=== PATIENT | female | born 1930 | race Caucasian/White ===

== ENCOUNTER 2016-09-08 23:10 | Emergency (ER) | payer MEDICARE, MEDICAID ==
--- NOTE | 2016-09-08 23:22 | Emergency Department Record ---
History of Present Illness - General Chief Complaint: Fall Injury Stated Complaint: FALL Time Seen by Provider: 09/08/16 23:16 Source: Patient, EMS Mode of Arrival: Stretcher Limitations: No limitations - History of Present Illness Initial Comments: 85 yo female presents to ED following a fall at [facility]. Patient reports that she fell striking her right forehead and right lateral hip, denies LOC or difficulty moving her right hips. Patient denies neck injury or pain on examination. 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 Fall Witnessed: Yes, by living facility staff Place Fall Occurred: Home Loss of Consciousness: None Prolonged Down Time?: No Symptoms Prior to Fall: None Location: Head Severity: Moderate Quality: Aching Associated Symptoms: Denies - Sundar Coma Scale Eye Response: (4) Open spontaneously Motor Response: (6) Obeys commands Verbal Response: (5) Oriented Sundar Total: 15 - Related Data Home Medications Medication Instructions Recorded Confirmed Last Taken Acetaminophen [Tylenol 325Mg] 650 mg PO Q6H 09/02/16 09/08/16 Unknown Albuterol Sulfate 0.083% [Neb] 2 inh PO ASDIR 09/02/16 09/08/16 Unknown Amlodipine Besylate [Norvasc] 10 mg PO DAILY 09/02/16 09/08/16 09/02/16 Ammonium Lactate [Kylah-Hydrolac] 2 apply TOP ASDIR 09/02/16 09/08/16 09/01/16 Aspirin [Adult Low Dose Aspirin EC] 81 mg PO DAILY 09/02/16 09/08/16 09/02/16 Atenolol [Tenormin] 25 mg PO DAILY 09/02/16 09/08/16 09/02/16 Atorvastatin Calcium [Lipitor] 40 mg PO QHS 09/02/16 09/08/16 09/01/16 Cholecalciferol (Vitamin D3) 1 tab PO DAILY 09/02/16 09/08/16 09/02/16 [Vitamin D3] Multivits,Ca,Minerals/Iron/FA 1 tab PO DAILY 09/02/16 09/08/16 09/02/16 [Thera M Plus Tablet] Omeprazole [Prilosec] 20 mg PO DAILY 09/02/16 09/08/16 09/02/16 Ondansetron [Zofran Odt] 4 mg PO Q6HR PRN 09/02/16 09/08/16 Unknown Oxybutynin Chloride [Ditropan Xl] 10 mg PO DAILY 09/02/16 09/08/16 09/02/16 Sennosides [Senna] 8.6 mg PO QAM 09/02/16 09/08/16 09/02/16 Tazarotene [Tazorac] 30 gm TP ASDIR 09/02/16 09/08/16 09/02/16 Hydralazine HCl [Apresoline] 25 mg PO TID 09/08/16 09/08/16 Unknown Hydrocodone/Acetaminophen [[place] 1 tab PO BID 09/08/16 09/08/16 Unknown 5mg/325mg] Lidocaine [Lidoderm] 1 each TP DAILY 09/08/16 09/08/16 Unknown Loratadine [Claritin] 10 mg PO DAILY 09/08/16 09/08/16 Unknown Nabumetone 750 mg PO DAILY 09/08/16 09/08/16 Unknown Allergies Allergy/AdvReac Type Severity Reaction Status Date / Time Penicillins Allergy SWELLING Verified 09/02/16 13:11 (GENERAL) Review of Systems Constitutional: Denies: Chills, Fever, Malaise, Night sweats Eyes: Denies: Eye discharge, Eye pain ENT: Denies: Congestion, Ear pain, Epistaxis Respiratory: Denies: Cough, Dyspnea Cardiovascular: Denies: Chest pain, Dyspnea on exertion Endocrine: Denies: Fatigue, Heat or cold intolerance Gastrointestinal: Denies: Abdominal pain, Nausea, Vomiting Musculoskeletal: Reports: Arthralgia (right hip apin). Denies: Back pain, Gout , Joint swelling Skin: Denies: Bruising, Change in color Neurological: Reports: Headache. Denies: Abnormal gait, Confusion, Seizure Psychiatric: Denies: Anxiety Hematological/Lymphatic: Denies: Anemia, Blood Clots Past Medical History - SOCIAL HISTORY Smoking Status: Former smoker Drug Use: None - RESPIRATORY Hx Respiratory Disorders: No - CARDIOVASCULAR Hx Cardio Disorders: Yes Hx Hypertension: Yes - NEURO Hx Neuro Disorders: Yes Hx CVA: Yes - GI Hx GI Disorders: Yes Comment:: constipation - Hx Genitourinary Disorders: No - ENDOCRINE Hx Endocrine Disorders: No - MUSCULOSKELETAL Hx Musculoskeletal Disorders: Yes Hx Arthritis: Yes - PSYCH Hx Psych Problems: No - HEMATOLOGY/ONCOLOGY Hx Hematology/Oncology Disorders: No Family Medical History Family Hx Comment (NOT TO BE USED IN PLACE OF ITEMS BELOW): brother had MS Hx Cancer: Brother/Sister Hx Heart Disease: Brother/Sister Physical Exam - General General Appearance: Alert, Oriented x3, Cooperative, No acute distress Limitations: No limitations - Head Head exam: Normocephalic, Other (abrasion to the right forehead) Head exam detail: Abrasion. negative: Contusion, Granado's sign, Hematoma, Laceration - Eye Eye exam: Normal appearance. negative: Conjunctival injection, Periorbital swelling, Periorbital tenderness, Scleral icterus - ENT Ear exam: negative: Auricular hematoma, Auricular trauma Nasal Exam: negative: Active bleeding, Discharge, Dried blood, Foreign body Mouth exam: negative: Drooling, Laceration, Muffled voice, Tongue elevation - Neck Neck exam: Normal inspection. negative: Meningismus, Tenderness - Respiratory Respiratory exam: Normal lung sounds bilaterally. negative: Respiratory distress, Rhonchi, Stridor, Wheezes - Cardiovascular Cardiovascular Exam: Regular rate, Normal rhythm, Normal heart sounds - GI/Abdominal GI/Abdominal exam: Soft. negative: Rebound, Rigid, Tenderness - Rectal Rectal exam: Deferred - exam: Deferred - Extremities Extremities exam: Tenderness (TTP to the proximal/lateral right hip on examination). negative: Calf tenderness, Pedal edema - Back Back exam: Denies: CVA tenderness (R), CVA tenderness (L) - Neurological Neurological exam: Alert, Oriented X3. negative: Motor sensory deficit - Psychiatric Psychiatric exam: Normal affect, Normal mood - Skin Skin exam: Normal color. negative: Abrasion Type of lesion: negative: abrasion Course - Reevaluation(s) Reevaluation #1: 09/09/16 00:06 CT Head: No acute traumatic injury Right Hip: No acute fracture identified patient and family were updated on all results, and appears stable for discharge at this time. 09/09/16 00:26 Disposition Disposition: Discharge Clinical Impression: Head contusion Qualifiers: Encounter type: initial encounter Contusion of head detail: unspecified part of head Qualified Code(s): S00.93XA - Contusion of unspecified part of head, initial encounter Contusion of hip, right Qualifiers: Encounter type: initial encounter Qualified Code(s): S70.01XA - Contusion of right hip, initial encounter Disposition: Home, Self-Care Condition: (2) Stable Instructions: Fall Prevention for Older Adults (ED) Additional Instructions: Return to ED if your symptoms worsen or if you have any concerns. Follow-up with your family doctor in 3-5 days as directed. Forms: Patient Portal Access Time of Disposition: 23:51
--- NOTE | 2016-09-11 15:37 | RADIOLOGY REPORT ---
DATE: 09/08/2016 at 11:45 p.m. EXAM: RIGHT HIP WITH AP PELVIS. HISTORY: The patient fell at assisted living with a bruise to the right lateral hip area. TECHNIQUE: AP pelvis, AP lateral right hip were obtained. COMPARISON: None. ENCOUNTER: Initial. 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 No definite acute fracture or dislocation of the right hip evident. There is an asymmetric vertical linear sclerotic density along the right side of the pubic symphysis compared to the left. No definite vertical step off seen to indicate a fracture. This is probably just relate to some degenerative change. Old films would be useful to confirm. Some vascular calcification is noted in the pelvis and right thigh. IMPRESSION: 1. NO DEFINITE FRACTURE OR DISLOCATION OF THE RIGHT HIP. 2. VERTICAL LINEAR SCLEROTIC DENSITY RIGHT SIDE OF THE PUBIC SYMPHYSIS PROBABLY JUST RELATED TO SOME SPURRING. OLD FILMS WOULD BE USEFUL TO CONFIRM. JOB NUMBER: [id number] MTDD
--- NOTE | 2016-09-11 15:46 | CT SCAN REPORT ---
DATE: 09/08/2016 at 11:56 p.m. EXAM: EMERGENCY HEAD CT WITHOUT CONTRAST. HISTORY: The patient fell in assisted living and hit her head on the wall in the right frontal region. TECHNIQUE: Axial CT scan of the head performed without intravenous contrast. Preliminary report provided by [facility]. COMPARISON: None. ENCOUNTER: Initial. FINDINGS: No definite acute intracranial hemorrhage is identified. No focal mass effect or midline shift apparent. 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 No definite acute infarct or intracranial mass lesion is seen. Extensive metallic artifact emanating from the anteromedial aspect of the right orbit, and clinical correlation is suggested. Some soft tissue swelling in the scalp of the right frontal region superiorly. No definite underlying fracture identified. IMPRESSION: 1. NO DEFINITE ACUTE INTRACRANIAL HEMORRHAGE OR FOCAL MASS EFFECT EVIDENT. 2. GENERALIZED ATROPHY WITH CHRONIC-APPEARING DEEP WHITE MATTER CHANGES. 3. SOFT TISSUE SWELLING OF THE SCALP OF THE RIGHT FRONTAL REGION SUPERIORLY. 4. PROMINENT METALLIC ARTIFACT EMANATING FROM THE ANTEROMEDIAL ASPECT OF THE RIGHT ORBIT. CLINICAL CORRELATION IS SUGGESTED. JOB NUMBER: [id number] MTDD
== END 2016-09-09 00:42 | disposition home or self-care (01) ==
LOC: ER 23:10
DX: S00.93XA Contusion of unspecified part of head, initial encounter (principal); S70.01XA Contusion of right hip, initial encounter; W18.00XA Striking against unspecified object with subsequent fall, initial encounter; Y92.129 Unspecified place in nursing home as the place of occurrence of the external cause; I10 Essential (primary) hypertension; Z87.891 Personal history of nicotine dependence
CPT/HCPCS: 70450; 99283; 99284

== ENCOUNTER 2017-04-04 10:06 | Emergency (ER) | payer BC, MEDICAID ==
--- NOTE | 2017-04-04 10:16 | Emergency Department Record ---
History of Present Illness - General Chief Complaint: Shortness of breath Stated Complaint: DID Time Seen by Provider: 04/04/17 10:08 Source: Patient, Family Mode of Arrival: Ambulatory Limitations: No limitations - History of Present Illness Initial Comments: 86 yo female presents from [facility] with shortness of breath. She states the shortness of breath started this morning. She denies chest pain. No significant cough. No fever. No vomiting or diarrhea. She had some associated nausea but no vomiting. No back pain. No recent changes in her health. She has a prior history of stroke and was admitted to [facility] one year ago in March. She has some permanent deficits from the stroke that are unchanged. MD Complaint: Shortness of breath -: Hour(s) Severity: Moderate Consistency: Constant Improves With: Rest Worsens With: Exertion Associated Symptoms: Denies other symptoms Treatments Prior to Arrival: None - Related Data Home Medications Medication Instructions Recorded Confirmed Last Taken Acetaminophen [Tylenol 325Mg] 650 mg PO Q6H 09/02/16 04/04/17 Unknown Albuterol Sulfate 0.083% [Neb] 2 inh PO ASDIR 09/02/16 04/04/17 Unknown Ammonium Lactate [Kylah-Hydrolac] 2 apply TOP ASDIR 09/02/16 04/04/17 09/01/16 Aspirin [Adult Low Dose Aspirin EC] 81 mg PO DAILY 09/02/16 04/04/17 09/02/16 Atenolol [Tenormin] 25 mg PO DAILY 09/02/16 04/04/17 09/02/16 Atorvastatin Calcium [Lipitor] 40 mg PO QHS 09/02/16 04/04/17 09/01/16 Cholecalciferol (Vitamin D3) 1 tab PO DAILY 09/02/16 04/04/17 09/02/16 [Vitamin D3] Multivit,Calc,Mins/Iron/Folic 1 tab PO DAILY 09/02/16 04/04/17 09/02/16 [Thera M Plus Tablet] Omeprazole [Prilosec] 20 mg PO DAILY 09/02/16 04/04/17 09/02/16 Ondansetron [Zofran Odt] 4 mg PO Q6HR PRN 09/02/16 04/04/17 Unknown Oxybutynin Chloride [Ditropan Xl] 10 mg PO DAILY 1204/04/17 09/02/16 Sennosides [Senna] 8.6 mg PO QAM 09/02/16 04/04/17 09/02/16 Tazarotene [Tazorac] 30 gm TP ASDIR 09/02/16 04/04/17 09/02/16 Hydralazine HCl [Apresoline] 25 mg PO TID 09/08/16 04/04/17 Unknown Hydrocodone/Acetaminophen [[place] 1 tab PO BID 09/08/16 04/04/17 Unknown 5mg/325mg] Lidocaine [Lidoderm] 1 each TP DAILY 09/08/16 04/04/17 Unknown Loratadine [Claritin] 10 mg PO DAILY 09/08/16 04/04/17 Unknown Nabumetone 750 mg PO DAILY 09/08/16 04/04/17 Unknown Escitalopram Oxalate [Lexapro] 20 mg PO DAILY 04/04/17 04/04/17 Unknown Allergies Allergy/AdvReac Type Severity Reaction Status Date / Time Penicillins Allergy SWELLING Verified 09/02/16 13:11 (GENERAL) Review of Systems Constitutional: Reports: Malaise, Weakness. Denies: Chills, Fever Eyes: Denies: Eye discharge, Eye pain, Photophobia, Vision change ENT: Denies: Congestion, Throat pain Respiratory: Reports: Dyspnea. Denies: Cough, Hemoptysis, Stridor, Wheezes Cardiovascular: Reports: Dyspnea on exertion. Denies: Arrhythmia, Chest pain, Edema, Palpitations, Syncope Endocrine: Reports: Fatigue. Denies: Polydipsia, Polyuria Gastrointestinal: Reports: Nausea. Denies: Abdominal pain, Constipation, Diarrhea, Hematemesis, Hematochezia, Vomiting Genitourinary: Denies: Dysuria, Urgency Musculoskeletal: Reports: As per HPI, Arthralgia Skin: Denies: Bruising, Change in color, Rash Neurological: Denies: Headache, Numbness, Weakness Psychiatric: Denies: Anxiety Hematological/Lymphatic: Denies: Blood Clots, Easy bleeding, Easy bruising, Swollen glands Past Medical History - SOCIAL HISTORY Smoking Status: Former smoker Drug Use: None - RESPIRATORY Hx Respiratory Disorders: No - CARDIOVASCULAR Hx Cardio Disorders: Yes Hx Hypertension: Yes - NEURO Hx Neuro Disorders: Yes Hx CVA: Yes - GI Hx GI Disorders: Yes Comment:: constipation - Hx Genitourinary Disorders: No - ENDOCRINE Hx Endocrine Disorders: No - MUSCULOSKELETAL Hx Musculoskeletal Disorders: Yes Hx Arthritis: Yes - PSYCH Hx Psych Problems: No - HEMATOLOGY/ONCOLOGY Hx Hematology/Oncology Disorders: No Family Medical History Family Hx Comment (NOT TO BE USED IN PLACE OF ITEMS BELOW): brother had MS Hx Cancer: Brother/Sister Hx Heart Disease: Brother/Sister Physical Exam - General General Appearance: Alert, Oriented x3, Cooperative, No acute distress Limitations: No limitations - Head Head exam: Normal inspection - Eye Eye exam: Normal appearance, PERRL - ENT ENT exam: Normal exam, Mucous membranes moist Ear exam: Normal external inspection Nasal Exam: Normal inspection Mouth exam: Normal external inspection Teeth exam: Normal inspection Throat exam: Normal inspection - Neck Neck exam: Normal inspection, Full ROM. negative: Tenderness - Respiratory Respiratory exam: Decreased breath sounds. negative: Accessory muscle use, Chest wall tenderness, Prolonged expiratory, Rales, Respiratory distress, Rhonchi, Stridor, Wheezes - Cardiovascular Cardiovascular Exam: Bradycardia, Irregular rhythm. negative: Normal rhythm, Tachycardia Peripheral Pulses: 2+: Radial (R), Radial (L) - GI/Abdominal GI/Abdominal exam: Soft. negative: Tenderness - Rectal Rectal exam: Deferred - exam: Deferred - Extremities Extremities exam: Normal inspection, Full ROM, Normal capillary refill, Tenderness (bilateral knee tenderness). negative: Pedal edema - Back Back exam: Reports: Normal inspection. Denies: CVA tenderness (R), CVA tenderness (L) - Neurological Neurological exam: Alert, Motor sensory deficit (chronic), Normal gait, Oriented X3. negative: Altered, CN II-XII intact - Psychiatric Psychiatric exam: Normal affect, Normal mood. negative: Agitated, Anxious - Skin Skin exam: Dry, Intact, Normal color, Warm Course - Reevaluation(s) Reevaluation #1: The patient was seen and examined No distress but bradycardia and irregular rhythm on exam No hypotension or AMS. Orders placed. 04/04/17 10:21 Trancutaneous pacers will be placed 04/04/17 10:29 Reevaluation #2: [id number] Unknown rhythm origin without P waves, rate approximately 50bpm, Intervals QRS 149, QTc 516, RBBB pattern, [place] normal, ST NS CW RBBB no old EKG for comparison 04/04/17 10:31 Patient is full code She prefers [facility] for transfer 04/04/17 10:42 Reevaluation #3: The labs were reviewed CR is 1.3 K is 5.1 Mg is 2.1 Troponin is normal at 0.012 BNP elevated 2170 CXR Mild CMG with mild PVC. [facility] contacted. 04/04/17 10:55 Reevaluation #4: The patient was accepted by Dr Estrada of [facility] 04/04/17 11:11 Medical Decision Making - Lab Data Result diagrams: 04/04/17 10:20 04/04/17 10:20 Disposition Disposition: Transfer Clinical Impression: Bradycardia Dyspnea Qualifiers: Dyspnea type: unspecified Qualified Code(s): R06.00 - Dyspnea, unspecified Arrhythmia Qualifiers: Arrhythmia type: unspecified cardiac arrhythmia Qualified Code(s): I49.9 - Cardiac arrhythmia, unspecified Disposition: Acute Care Hospital Transfer Transfer To: [facility] Reason For Transfer: Heart Block Accepting Physician: Sean Time Discussed w/Accepting Physician: 11:16 Condition: (3) Guarded Forms: Patient Portal Access Time of Disposition: 11:16 Quality - Quality Measures Quality Measures: N/A - Blood Pressure Screening View Details: Yes Blood Pressure Classification: Pre-Hypertensive BP Reading Systolic Measurement: 139 Diastolic Measurement: 54 Screening for High Blood Pressure: < Pre-Hypertensive BP, F/U Documented > [ G8950] Pre-Hypertensive Follow-up Interventions: Referral to alternative/primary care provider.
[2017-04-04 10:25] LABS: BASO % 0.8 % (0-6); EOS % 2.1 % (0-6); GRAN % 51.5 % (47-80); HEMATOCRIT 34.4 % (35.0-47.0); LYMPH % 37.5 % (16-45); MEAN CELL VOLUME 97.7 fl (81-97); MEAN CORPUSCULAR HEMOGLOBIN 31.2 pg (27-33); MEAN PLATELET VOLUME 10.6 fl (7.4-10.4); MONO % 8.1 % (0-9); PLATELET COUNT 227 K/uL (130-400); RED BLOOD COUNT 3.52 M/uL (3.80-5.40); RED CELL DISTRIBUTION WIDTH 14.5 % (11.5-14.5)
[2017-04-04 10:40] LABS: ALB/GLOB RATIO 1.5 (1.1-1.8); ALBUMIN 4.1 gm/dL (3.5-5.0); ALKALINE PHOSPHATASE 112 U/L (38-126); ALT/SGPT 129 U/L (9-52); ANION GAP 8.3 (7-16); AST/SGOT 139 U/L (14-36); BILIRUBIN,TOTAL 1.04 mg/dL (0.2-1.3); BLOOD UREA NITROGEN 28 mg/dL (7-17); CARBON DIOXIDE 23.7 mmol/L (22-30); CREATINE PHOSPHOKINASE 37 U/L (30-135); CREATININE 1.3 mg/dL (0.52-1.04); EST GLOMERULAR FILTRATION RATE 41 ml/min; GLUCOSE,RANDOM 148 mg/dL (70-110); INR 0.93; PARTIAL THROMBOPLASTIN TIME 25.2 SECONDS (24.5-39.1); TOTAL PROTEIN 6.8 gm/dL (6.3-8.2)
[2017-04-04 10:52] LABS: CKMB 1.1 ug/L (0-6); TROPONIN I < 0.012 ng/mL (0.00-0.034)
[2017-04-04] MEDS: FUROSEMIDE IV 20MG/2ML VIAL IVP ONE (11:14)
--- NOTE | 2017-04-06 11:12 | RADIOLOGY REPORT ---
EXAM: CHEST HISTORY: DIFFICULTY IN BREATHING. TECHNIQUE: A portable AP upright view of the chest was performed. FINDINGS: The heart size is normal. Mild pulmonary vascular congestion. No infiltrate or pleural effusion. The osseous structures are normal. IMPRESSION: MILD PULMONARY VASCULAR CONGESTION. JOB NUMBER: [id number] MTDD
== END 2017-04-04 12:00 | disposition short-term general hospital (02) ==
LOC: ER 10:06
DX: R00.1 Bradycardia, unspecified (principal); R06.00 Dyspnea, unspecified; R11.0 Nausea; I45.10 Unspecified right bundle-branch block; I10 Essential (primary) hypertension; Z87.891 Personal history of nicotine dependence
CPT/HCPCS: 71010; 80053; 82550; 82553; 83735; 83880; 84484; 85025; 85610; 85730; 93005; 93010; 96374; 99285; J1940

== ENCOUNTER 2017-07-24 11:55 | Emergency (ER) | payer BC, MEDICAID ==
[2017-07-24] MEDS ORDERED: ACETAMINOPHEN 1,000 MG/100 ML BTL IVPB ONE (11:56)
[2017-07-24] MEDS ORDERED: ONDANSETRON HCL IV 4 MG/2 ML VIAL IVP ONE (11:56)
--- NOTE | 2017-07-24 12:03 | Emergency Department Record ---
History of Present Illness - General Chief complaint: Head Injury Stated complaint: FALL Time Seen by Provider: 07/24/17 11:56 Source: Patient, EMS Mode of Arrival: Ambulatory Limitations: No limitations - History of Present Illness Initial comments: 86 yo female presents after a fall at a local nursing care facility. She was in the shower and fell reaching for a call light. She hit her right forehead. NO LOC. NO anti-coagulants. She is nauseated without vomiting. Staff by history got her out of the shower and dressed. She was up in a chair on EMS arrival. [facility] reports recent urinary urgency and frequency. MD Complaint: Head injury -: Minutes(s) Arrival Conditions: C-spine immobilization present Mechanism of Injury: Mechanical fall Location: Face, Frontal Loss of Consciousness: No Previous Trauma to this Area: No Place: Home Radiation: None Severity: Mild Quality: Aching Consistency: Constant Provoking factors: Other (Reaching for call light) Other Injuries: Other (forehead contusion) Associated Symptoms: Nausea - Related Data Allergies/Adverse reactions: Allergies Allergy/AdvReac Type Severity Reaction Status Date / Time Penicillins Allergy SWELLING Verified 09/02/16 13:11 (GENERAL) Review of Systems Constitutional: Denies: Chills, Fever, Malaise, Night sweats, Weakness Eyes: Denies: Eye discharge, Eye pain, Photophobia, Vision change ENT: Denies: Congestion, Throat pain Respiratory: Denies: Cough, Dyspnea, Wheezes Cardiovascular: Denies: Chest pain, Syncope Endocrine: Denies: Fatigue Gastrointestinal: Reports: Nausea. Denies: Abdominal pain, Diarrhea, Vomiting Genitourinary: Reports: Frequency, Urgency Musculoskeletal: Denies: Arthralgia, Back pain, Joint swelling, Myalgia, Neck pain Skin: Reports: As per HPI, Bruising Neurological: Reports: Headache. Denies: Confusion, Numbness, Tingling, Tremors , Vertigo, Weakness Psychiatric: Denies: Anxiety Hematological/Lymphatic: Denies: Blood Clots, Easy bleeding, Easy bruising, Swollen glands Past Medical History - SOCIAL HISTORY Smoking Status: Former smoker Drug Use: None - RESPIRATORY Hx Respiratory Disorders: No - CARDIOVASCULAR Hx Cardio Disorders: Yes Hx Hypertension: Yes - NEURO Hx Neuro Disorders: Yes Hx CVA: Yes - GI Hx GI Disorders: Yes Comment:: constipation - Hx Genitourinary Disorders: No - ENDOCRINE Hx Endocrine Disorders: No - MUSCULOSKELETAL Hx Musculoskeletal Disorders: Yes Hx Arthritis: Yes - PSYCH Hx Psych Problems: No - HEMATOLOGY/ONCOLOGY Hx Hematology/Oncology Disorders: No Family Medical History Family Hx Comment (NOT TO BE USED IN PLACE OF ITEMS BELOW): brother had MS Hx Cancer: Brother/Sister Hx Heart Disease: Brother/Sister Physical Exam - General General Appearance: Alert, Oriented x3, Cooperative, No acute distress Limitations: No limitations - Head Head exam: negative: Atraumatic, Normal inspection Head exam detail: Contusion, Hematoma. negative: General tenderness Image of Face/Head: 1 - bruising contusion, no laceration - Eye Eye exam: Normal appearance. negative: Conjunctival injection - ENT ENT exam: Normal exam, Mucous membranes moist Ear exam: Normal external inspection Nasal Exam: Normal inspection Mouth exam: Normal external inspection - Neck Neck exam: Normal inspection, Full ROM. negative: Tenderness - Respiratory Respiratory exam: Normal lung sounds bilaterally. negative: Respiratory distress, Wheezes - Cardiovascular Cardiovascular Exam: Regular rate, Normal rhythm, Normal heart sounds Peripheral Pulses: 2+: Radial (R), Radial (L) - GI/Abdominal GI/Abdominal exam: Soft. negative: Tenderness - Rectal Rectal exam: Deferred - exam: Deferred - Extremities Extremities exam: Normal inspection, Full ROM. negative: Calf tenderness, Tenderness - Back Back exam: Reports: Normal inspection, Full ROM. 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 negative: Agitated, Anxious - Skin Skin exam: Abrasion, Dry, Intact, Warm Course - Reevaluation(s) Reevaluation #1: 07/24/17 12:03 Alert and Oriented No confusion She has a forehead contusion Per EMS the half-way is concerned about UTI as well with recent frequency 07/24/17 12:39 The patient returned from CT and now has a mild right mid lateral chest tenderness she noticed On examination she has mild tenderness to the right mid chest ribs. No step of or crepitus. 07/24/17 13:00 The HCT and Cervical Spine CT scans were negative for injuries. Degenerative changes noted in the cervical spine 07/24/17 13:22 The UA is negative DC home with recommendation for close follow up with the PCP 07/24/17 13:51 The CXR was reviewed The patient has a possible 11th rib fx and old healed fractures Her pain is well controlled. No shortness of breath. No abdominal tenderness I discussed the labs, CT's UA with the family I recommend close follow up with Dr Matt We discussed close supervision at home as well with all activities to avoid falls Medical Decision Making - Lab Data Result diagrams: 07/24/17 12:19 07/24/17 12:19 Disposition Disposition: Discharge Clinical Impression: Rib fracture Head contusion Qualifiers: Encounter type: initial encounter Contusion of head detail: scalp Qualified Code(s): S00.03XA - Contusion of scalp, initial encounter Disposition: Home, Self-Care Condition: (1) Good Instructions: Concussion (ED), Rib Fracture (ED) Additional Instructions: Ice to any sore or bruised areas Return if you have any new symptoms or concerns Follow up this ER visit with your family doctor first of the week to discuss the results and any additional concerns. You will need close supervision with all activities including walking and showering to avoid falls. Forms: Patient Portal Access Time of Disposition: 13:21 Quality - Quality Measures Quality Measures: N/A - Blood Pressure Screening Does Patient Have Any of the Following: No Blood Pressure Classification: Hypertensive Reading Systolic Measurement: 166 Diastolic Measurement: 66 Screening for High Blood Pressure: < Pre-Hypertensive BP, F/U Documented > [ G8950] Pre-Hypertensive Follow-up Interventions: Referral to alternative/primary care provider.
[2017-07-24 12:28] LABS: BASO % 0.6 % (0-6); HEMATOCRIT 35.3 % (35.0-47.0); HEMOGLOBIN 11.3 gm/dl (11.6-16.0); LYMPH % 21.2 % (16-45); MEAN CELL VOLUME 96.4 fl (81-97); MEAN CORPUSCULAR HEMOGLOBIN 30.8 pg (27-33); MEAN PLATELET VOLUME 10.1 fl (7.4-10.4); MONO % 8.2 % (0-9); PLATELET COUNT 232 K/uL (130-400); RED BLOOD COUNT 3.66 M/uL (3.80-5.40); RED CELL DISTRIBUTION WIDTH 14.3 % (11.5-14.5); WHITE BLOOD COUNT W/O DIFF 7.2 K/uL (4.2-12.2)
[2017-07-24 12:37] LABS: BLOOD UREA NITROGEN 18 mg/dL (8-23); CREATININE 0.9 mg/dL (0.5-0.9); EST GLOMERULAR FILTRATION RATE > 60 mL/min
[2017-07-24 12:40] LABS: GLUCOSE,RANDOM 183 mg/dL (74-109); INR 0.93; PARTIAL THROMBOPLASTIN TIME 21.5 SECONDS (24.5-39.1)
[2017-07-24 13:10] LABS: URINE APPEARANCE CLEAR; URINE BILIRUBIN NEGATIVE (NEGATIVE); URINE BLOOD NEGATIVE (NEGATIVE); URINE COLOR YELLOW; URINE GLUCOSE (UA) NEGATIVE (NEGATIVE); URINE KETONE NEGATIVE (NEGATIVE); URINE LEUKOCYTE ESTERASE NEGATIVE (NEGATIVE); URINE NITRITE NEGATIVE (NEGATIVE); URINE UROBILINOGEN 0.2 E.U./dL (0.20 - 1.00)
--- NOTE | 2017-07-26 06:01 | CT SCAN REPORT ---
DATE: 07/24/2017 at 12:23 p.m. EXAM: CT SCAN OF THE BRAIN WITHOUT CONTRAST. HISTORY: Fell today. Head injury. TECHNIQUE: Standard CT imaging of the brain was performed in the axial plane without contrast. Additional coronal and sagittal reformatted images were also performed. COMPARISON: 09/08/2016. ENCOUNTER: Initial. FINDINGS: There is mild atrophy. The ventricles and subarachnoid spaces are otherwise normal. Mild, chronic small-vessel ischemic changes are present within the periventricular and subcortical white matter of both cerebral hemispheres. There is no mass, mass effect, intracranial hemorrhage, visible acute infarct, or abnormal extra-axial fluid. The skull is intact. Scalp swelling is present within the right frontal region. Metallic artifact is again noted within the left orbit and is unchanged. This is likely postsurgical in nature. The orbits, sinuses, and mastoids are otherwise normal. IMPRESSION: 1. RIGHT FRONTAL SCALP SWELLING. 2. NO ACUTE INTRACRANIAL ABNORMALITY OR SKULL FRACTURE. 3. MILD ATROPHY AND CHRONIC SMALL-VESSEL ISCHEMIC CHANGES. JOB NUMBER: [id number] [facility]
--- NOTE | 2017-07-26 06:11 | CT SCAN REPORT ---
DATE: 07/24/2017 at 12:26 p.m. EXAM: CT SCAN OF THE CERVICAL SPINE WITHOUT CONTRAST. HISTORY: Fell today in the shower. Hit her head. TECHNIQUE: Standard CT imaging of the cervical spine was performed in the axial plane without contrast. Additional coronal and sagittal reformatted images were also performed. HAND DOMINANCE: Right. ENCOUNTER: Initial. COMPARISON: None. FINDINGS: There is straightening of the normal cervical lordosis. The patient is immobilized in a cervical collar. The craniocervical and cervicothoracic junctions are normal. There is anterolisthesis of C4 on C5 which appears degenerative in nature secondary to facet arthropathy. There is severe disc space narrowing of the C5-6 and C6-7 levels with associated endplate degenerative change. There is moderate narrowing of the C7-T1 level and mild narrowing of the remaining cervical levels. There is no acute fracture, subluxation, or prevertebral soft tissue swelling. There is borderline central canal stenosis at the C5-6 and C6-7 levels. Moderate bilateral neuroforaminal narrowing is present at the C4-5 level. There is moderate to severe bilateral neuroforaminal narrowing at the C5-6 and C6-7 levels. Bilateral carotid artery calcifications are present. The neck soft tissues are otherwise normal. The lung apices are clear. IMPRESSION: 1. NO ACUTE CERVICAL SPINE PATHOLOGY. 2. 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 THERE IS MILD ANTEROLISTHESIS OF C4 ON C5 WHICH APPEARS DEGENERATIVE IN NATURE. 3. BILATERAL CAROTID ARTERY CALCIFICATIONS. JOB NUMBER: [id number] [facility]
--- NOTE | 2017-07-26 06:21 | RADIOLOGY REPORT ---
DATE: 07/24/2017 at 1313 hours. EXAM: RIGHT RIBS. HISTORY: Right-sided rib pain under the right breast. A history of a fall today. TECHNIQUE: Three views of the right ribs were obtained. COMPARISON: Previous chest x-ray dated 04/04/2017. FINDINGS: The examination is limited by breathing motion artifact. There are old, healed fractures involving the anterior aspects of the right sixth and seventh ribs. There is the suggestion of a nondisplaced fracture involving the distal end of the right eleventh rib. No other fractures are visualized. There is no acute intrathoracic pathology. A pacemaker is present. IMPRESSION: 1. LIMITED EXAMINATION DUE TO BREATHING MOTION ARTIFACT. 2. POSSIBLE NONDISPLACED FRACTURE INVOLVING THE DISTAL END OF THE RIGHT ELEVENTH RIB. 3. OLD, HEALED FRACTURES OF THE ANTERIOR ASPECT OF THE RIGHT FIFTH AND SIXTH RIBS. JOB NUMBER: [id number] [facility]
== END 2017-07-24 14:07 | disposition home or self-care (01) ==
LOC: ER 11:55
DX: S00.83XA Contusion of other part of head, initial encounter (principal); S22.31XA Fracture of one rib, right side, initial encounter for closed fracture; M50.323 Other cervical disc degeneration at C6-C7 level; G51.0 Bell's palsy; I10 Essential (primary) hypertension; W18.2XXA Fall in (into) shower or empty bathtub, initial encounter; Y93.F1 Activity, caregiving, bathing; Y92.121 Bathroom in nursing home as the place of occurrence of the external cause; Z87.891 Personal history of nicotine dependence
CPT/HCPCS: 99284 ×2; 96365; 96375; 85025; 85730; 85610; 80048; 81003; 71101; 72125; 70450; J2405

== ENCOUNTER 2017-12-23 12:12 | Emergency (ER) | payer BC, MEDICAID ==
--- NOTE | 2017-12-23 12:32 | Emergency Department Record ---
History of Present Illness - General Chief Complaint: Ankle/Foot Injury Stated Complaint: FELL OUT OF WHEELCHAIR HURT ANKLES Time Seen by Provider: 12/23/17 12:24 Source: Patient Mode of Arrival: EMS Limitations: No limitations - History of Present Illness Initial Comments: The patient is here due to bilateral ankle pain. She is normally nonambulatory and was in a wheelchair and slipped out when she bent over to tie her shoes. She twisted both ankles and landed on both of them. The patient denies any head , neck or back pain or injury. MD Complaint: Ankle injury Onset/Timin -: Minutes(s) Type of Injury: Unknown Place: Other Severity scale (1-10): 10 Improves With: Nothing Worsens With: Nothing Context: Fall Associated Symptoms: Unable to bear weight - Related Data Home Medications Medication Instructions Recorded Confirmed Last Taken Amlodipine Besylate [Norvasc] 10 mg PO DAILY 12/23/17 12/23/17 12/23/17 Dextran 70/Hypromellose 1 each OP ASDIR 12/23/17 12/23/17 Unknown [Artificial Tears] Melatonin 5 mg PO QHS 12/23/17 12/23/17 12/22/17 Allergies Allergy/AdvReac Type Severity Reaction Status Date / Time Penicillins Allergy SWELLING Verified 12/23/17 12:17 (GENERAL) Travel Screening - Travel/Exposure Within Last 30 Days Have you traveled within the last 30 days?: No - Travel/Exposure Within Last Year Have you traveled outside the [place] in the last year?: No - Additonal Travel Details Have you been exposed to anyone with a communicable illness?: No - Travel Symptoms Symptom Screening: None Review of Systems Constitutional: Denies: Chills, Fever Eyes: Denies: Eye discharge ENT: Denies: Congestion Respiratory: Denies: Cough, Dyspnea Past Medical History - SOCIAL HISTORY Smoking Status: Former smoker Alcohol Use: None Drug Use: None - RESPIRATORY Hx Respiratory Disorders: No - CARDIOVASCULAR Hx Cardio Disorders: Yes Hx Hypertension: Yes - NEURO Hx Neuro Disorders: Yes Hx CVA: Yes - GI Hx GI Disorders: Yes Comment:: constipation - Hx Genitourinary Disorders: No Hx Bladder Problem: Yes (overactive) Hx Renal Disease: Yes - ENDOCRINE Hx Endocrine Disorders: No Hx Diabetes: Yes (type 2) - MUSCULOSKELETAL Hx Musculoskeletal Disorders: Yes Hx Arthritis: Yes - PSYCH Hx Psych Problems: No - HEMATOLOGY/ONCOLOGY Hx Hematology/Oncology Disorders: No Hx Anemia: Yes Family Medical History Any Significant Family History?: Yes Family Hx Comment (NOT TO BE USED IN PLACE OF ITEMS BELOW): brother had MS Hx Cancer: Brother/Sister Hx Heart Disease: Brother/Sister Physical Exam - General General Appearance: Alert, Cooperative, No acute distress - Head Head exam: Atraumatic, Normocephalic - Eye Eye exam: Normal appearance, PERRL - Neck Neck exam: Normal inspection, Full ROM. negative: Tenderness - Respiratory Respiratory exam: Normal lung sounds bilaterally. negative: Respiratory distress - Cardiovascular Cardiovascular Exam: Regular rate, Normal rhythm, Normal heart sounds - GI/Abdominal GI/Abdominal exam: Soft, Normal bowel sounds. negative: Tenderness - Extremities Extremities exam: Tenderness, Other (The feet are NVI.). negative: Normal inspection (The ankles are swollen L>R with bilateral significant tenderness.), Full ROM Course Vital Signs 12/23/17 12:19 Temperature 98 F Pulse Rate 60 Respiratory 20 Rate Blood Pressure 144/54 Pulse Ox 93 L - Reevaluation(s) Reevaluation #1: The patient is doing very well at this time. Her pain is much improved and her ankles are splinted. I did discuss the case with Dr. Matt and he would like an Orthopedic eval today or tomorrow. Due to that fact and that we do not have Ortho here the patient would like to go to [facility] for further eval. I then did discuss the case with Dr. Jc in the ER and he does accept the patient in an ER to ER transfer. Dr. Paz is the Ortho land conservation specialist and is aware of the consult in the ER at [facility]. 12/23/17 14:15 Medical Decision Making - Data Complexity MDM Data: X-Ray Ordered and/or Reviewed - Radiology Data Radiology results: Report reviewed (Bilateral ankles: bilateral distal fib fx' s. Possible L med malleolus nondisplaced fx and possible R posterior malleolus nondisplaced fx. The R ankle mortice is very slightly wide.) Disposition Disposition: Transfer Clinical Impression: Bilateral ankle fractures Disposition: Acute Care Hospital Transfer Transfer To: [facility] ED Reason For Transfer: Orthopedics Accepting Physician: Hosea. Time Discussed w/Accepting Physician: 14:14 Condition: (2) Stable Forms: Patient Portal Access Time of Disposition: 14:14 Quality - Quality Measures Quality Measures: N/A - Blood Pressure Screening View Details: Yes Does Patient Have Any of the Following: No Blood Pressure Classification: Pre-Hypertensive BP Reading Systolic Measurement: 121 Diastolic Measurement: 48 Screening for High Blood Pressure: < Pre-Hypertensive BP, F/U Documented > [ G8950] Pre-Hypertensive Follow-up Interventions: Referral to alternative/primary care provider.
[2017-12-23] MEDS ORDERED: HYDROCODONE/APAP 5/325MG TABLET PO ONE (12:46)
--- NOTE | 2017-12-24 10:05 | RADIOLOGY REPORT ---
EXAM: LEFT ANKLE HISTORY: INJURY. TECHNIQUE: Three views of the left ankle were obtained. Comparison: None. Encounter: Initial. FINDINGS: Osteopenia. Diffuse soft tissue swelling. Minimally displaced distal fibula fracture. Subtle lucency in the medial malleolus seen on the oblique view is suspicious for nondisplaced medial malleolar fracture. No dislocation or widening of the ankle mortise. IMPRESSION: OSTEOPENIA. MINIMALLY DISPLACED DISTAL FIBULA FRACTURE WITH ASSOCIATED SOFT TISSUE SWELLING. QUESTIONABLE NONDISPLACED MEDIAL MALLEOLAR FRACTURE. JOB NUMBER: [id number] [facility]
--- NOTE | 2017-12-24 10:15 | RADIOLOGY REPORT ---
EXAM: RIGHT ANKLE HISTORY: INJURY. TECHNIQUE: Three views of the right ankle were obtained. Comparison: None. Encounter: Initial. FINDINGS: Osteopenia. Widening of the medial ankle mortise with slight medial subluxation of the tibia relative to the talar dome. Mildly displaced distal fibula fracture. Subjective lucency of the posterior malleolus for which posterior malleolar fracture is not excluded. There is diffuse soft tissue swelling. IMPRESSION: 1. SEVERE OSTEOPENIA. MILDLY DISPLACED DISTAL FIBULA FRACTURE. 2. WIDENING OF THE MEDIAL ANKLE MORTISE WITH MEDIAL SUBLUXATION OF THE DISTAL TIBIA RELATIVE TO THE TALAR DOME. QUESTIONABLE POSTERIOR MALLEOLAR FRACTURE. JOB NUMBER: [id number] [facility]
== END 2017-12-23 16:17 | disposition short-term general hospital (02) ==
LOC: ER 12:12
DX: S82.832A Other fracture of upper and lower end of left fibula, initial encounter for closed fracture (principal); S82.831A Other fracture of upper and lower end of right fibula, initial encounter for closed fracture; W05.0XXA Fall from non-moving wheelchair, initial encounter; E11.9 Type 2 diabetes mellitus without complications; I10 Essential (primary) hypertension; F17.210 Nicotine dependence, cigarettes, uncomplicated; Z79.84 Long term (current) use of oral hypoglycemic drugs
CPT/HCPCS: 99285

== ENCOUNTER 2017-12-25 14:53 | Emergency (ER) | payer BC, MEDICAID ==
--- NOTE | 2017-12-25 15:31 | Emergency Department Record ---
History of Present Illness - General Chief Complaint: Fall Injury Stated Complaint: FALL INJURY PAIN Time Seen by Provider: 12/25/17 15:15 Source: Patient Mode of Arrival: Stretcher Limitations: No limitations - History of Present Illness Initial Comments: The patient is here due to worsening pain to both ankles. She fell and fx's both ankles 2 days ago and was initially seen here at [facility] She was transferred to [facility] ED for an Orthopedic consult and did not have surgery scheduled due to her age and the type of fx's. She had an OCL splint placed on the R ankle and a walking boot placed on the L ankle. Subsequently she was discharged to home and has had increasing pain and discomfort. Per the family member that is here the staff at the assisted living is not able to take care of her. MD Complaint: Fall Onset/Timin -: Days(s) Fall From: Wheelchair Place Fall Occurred: Home Severity scale (1-10): 9 Quality: Aching - Sundar Coma Scale Eye Response: (4) Open spontaneously Motor Response: (6) Obeys commands Verbal Response: (5) Oriented [place] Total: 15 - Related Data Previous Rx's Medication Instructions Recorded Hydrocodone/Acetaminophen [Duvall 1 each PO .EVERY 4-6 HRS PRN #20 12/25/17 5-325 Tablet] tablet Allergies Allergy/AdvReac Type Severity Reaction Status Date / Time Penicillins Allergy SWELLING Verified 12/25/17 15:36 (GENERAL) Travel Screening - Travel/Exposure Within Last 30 Days Have you traveled within the last 30 days?: No - Travel/Exposure Within Last Year Have you traveled outside the [place] in the last year?: No - Additonal Travel Details Have you been exposed to anyone with a communicable illness?: No Review of Systems Constitutional: Denies: Chills, Fever Past Medical History - SOCIAL HISTORY Smoking Status: Former smoker Alcohol Use: None Drug Use: None - RESPIRATORY Hx Respiratory Disorders: No - CARDIOVASCULAR Hx Cardio Disorders: Yes Hx Hypertension: Yes - NEURO Hx Neuro Disorders: Yes Hx CVA: Yes - GI Hx GI Disorders: Yes Comment:: constipation - Hx Genitourinary Disorders: No Hx Bladder Problem: Yes (overactive) Hx Renal Disease: Yes - ENDOCRINE Hx Endocrine Disorders: No Hx Diabetes: Yes (type 2) - MUSCULOSKELETAL Hx Musculoskeletal Disorders: Yes Hx Arthritis: Yes - PSYCH Hx Psych Problems: No - HEMATOLOGY/ONCOLOGY Hx Hematology/Oncology Disorders: No Hx Anemia: Yes Family Medical History Any Significant Family History?: No Family Hx Comment (NOT TO BE USED IN PLACE OF ITEMS BELOW): brother had MS Hx Cancer: Brother/Sister Hx Heart Disease: Brother/Sister Physical Exam - General General Appearance: Alert, Cooperative, No acute distress - Head Head exam: Atraumatic, Normocephalic, Normal inspection - Eye Eye exam: Normal appearance, PERRL - Neck Neck exam: Normal inspection, Full ROM. negative: Tenderness - Respiratory Respiratory exam: Normal lung sounds bilaterally. negative: Respiratory distress - Cardiovascular Cardiovascular Exam: Regular rate, Normal rhythm, Normal heart sounds - Extremities Extremities exam: negative: Normal inspection (There are splints placed on both lower extremities. The toes have normal sensation and function with a normal cap refill.) Course Vital Signs 12/25/17 15:06 Temperature 99.0 F Pulse Rate 60 Respiratory 18 Rate Blood Pressure 121/43 Pulse Ox 96 - Reevaluation(s) Reevaluation #1: I did discuss the case with Dr. Matt and he would like the patient to go back to [facility] with an increased dose of Duvall. We did unwrap and examine both splints and they are not to tight. The patient's lower legs are NVI. Dr. Matt would like the patient to be discharged back to [facility] and he will see her tomorrow. 12/25/17 15:43 Disposition Disposition: Discharge Clinical Impression: Bilateral ankle fractures Qualifiers: Encounter type: subsequent encounter Fracture type: closed Fracture healing: with routine healing Qualified Code(s): S82.891D - Other fracture of right lower leg, subsequent encounter for closed fracture with routine healing Disposition: Home, Self-Care Condition: (2) Stable Instructions: Ankle Fracture (ED) Additional Instructions: Please continue to ice and elevate the ankles. Please increase the timing of the Duvall. Please see Dr. Matt tomorrow for further evaluation. Return to the ER for any worsening symptoms. Prescriptions: Hydrocodone/Acetaminophen [Duvall 5-325 Tablet] 1 each PO .EVERY 4-6 HRS PRN #20 tablet PRN Reason: Pain Forms: Patient Portal Access Time of Disposition: 15:46 Quality - Quality Measures Quality Measures: N/A - Blood Pressure Screening View Details: Yes Does Patient Have Any of the Following: No Blood Pressure Classification: Pre-Hypertensive BP Reading Systolic Measurement: 121 Diastolic Measurement: 43 Screening for High Blood Pressure: < Pre-Hypertensive BP, F/U Documented > [ G8950] Pre-Hypertensive Follow-up Interventions: Referral to alternative/primary care provider.
== END 2017-12-25 15:48 | disposition home or self-care (01) ==
LOC: ER 14:53
DX: G89.11 Acute pain due to trauma (principal); S82.832A Other fracture of upper and lower end of left fibula, initial encounter for closed fracture; S82.831A Other fracture of upper and lower end of right fibula, initial encounter for closed fracture; I10 Essential (primary) hypertension; Z87.891 Personal history of nicotine dependence
CPT/HCPCS: 99282